=== PATIENT | male | born 1980 | race African-American/Black ===

== ENCOUNTER 2024-02-18 11:26 | Emergency (ER) | payer BC ==
[~2024-02-18] VITALS: Ht 167.6 cm; Wt 66.0 kg
[2024-02-18 11:27] VITALS: TEMP 97.8
[2024-02-18] MEDS ORDERED: CLAR10CA3 PO (13:00)
[2024-02-18] MEDS ORDERED: NAPHSOL OP (13:00)
[2024-02-18] MEDS ORDERED: FLON1SPR NARES (13:00)
[2024-02-18 13:14] VITALS: BP 123/77; O2SAT 100
== END 2024-02-18 13:15 | disposition home or self-care (01) ==
LOC: M ED 11:26
DX: J30.89 Other allergic rhinitis (principal); D23.9 Other benign neoplasm of skin, unspecified; Z79.899 Other long term (current) drug therapy